=== PATIENT | male | born 1985 | race Caucasian/White ===

== ENCOUNTER → 2017-10-14 | Outpatient (CLI) | payer BC ==
[~2017-10-14] MED LIST: HYDROCODONE BIT1 T11 PO; MOTRIN800 MG PO; NORFLEX100 MG PO
== END | disposition home or self-care (01) ==
LOC: RAD 10-09 09:00
DX: K21.9 Gastro-esophageal reflux disease without esophagitis (principal)

== ENCOUNTER → 2020-08-13 | Outpatient (CLI) | payer OTHER ==
[~2020-08-13] MED LIST changes: +ANAPROX DS550 MG PO; +DOXYCYCLINE100 MG PO
== END | disposition home or self-care (01) ==
LOC: COVID19 14:59
PROVIDERS: ATTEND Internal Medicine
DX: Z20.828 Contact with and (suspected) exposure to other viral communicable diseases (principal)